=== PATIENT | male | born 1975 | race Asian ===

== ENCOUNTER → 2017-01-17 | Outpatient (CLI) | payer OTHER | END | disposition home or self-care (01) | LOC: LAB 14:08 | PROVIDERS: ATTEND Surgery | DX: Z20.5 Contact with and (suspected) exposure to viral hepatitis (principal); Y99.0 Civilian activity done for income or pay | CPT/HCPCS: 36415; 86703; 86706; 86803; 87340 ==

== ENCOUNTER → 2017-03-06 | Outpatient (CLI) | payer OTHER ==
[2017-03-06 14:58] LABS: Hepatitis B Surface Antibody Negative
== END | disposition home or self-care (01) ==
LOC: LAB 14:00
PROVIDERS: ATTEND Preventive Medicine Preventive Medicine/Occupational Environmental Medicine
DX: Z02.1 Encounter for pre-employment examination (principal)
CPT/HCPCS: 36415; 86703; 86706; 86803; 87340